=== PATIENT | female | born 1965 | race Caucasian/White ===

== ENCOUNTER 2022-09-19 17:18 | Emergency (ER) | payer SELFPAY ==
[2022-09-19] MEDS ORDERED: Gentamicin 0.3% Ophth Soln 5 ML Bottle EYEBOTH ONE (17:19)
== END 2022-09-19 18:07 | disposition home or self-care (01) ==
LOC: FB.ED 17:18
DX: H10.9 Unspecified conjunctivitis (principal); I10 Essential (primary) hypertension; Z79.899 Other long term (current) drug therapy
CPT/HCPCS: 99283; A9270-GY